=== PATIENT | male | born 1935 | race African-American/Black ===

== ENCOUNTER 2016-08-16 14:36 | Emergency (ER) | payer MEDICARE, OTHER ==
[~2016-08-16] VITALS: Ht 175.3 cm; Wt 104.3 kg
--- NOTE | 2016-08-16 15:01 | EKG ---
[facility] [address] [place] [address] Test Date: 2016-08-16 Test Time: 14:55:43 Pat Name: VALERIA PATTON Department: Room: Gender: M [employer]: : 1935 Requested By: KAUSHIK BANKS Order Number: [id number] Reading MD: Sarah Andrea Measurements Intervals [place] Rate: 75 P: 54 DC: 190 QRS: -9 QRSD: 82 T: 34 QT: 352 QTc: 396 Interpretive Statements SINUS RHYTHM LEFTWARD AXIS NO SPECIFIC ECG ABNORMALITIES RI6.01 No previous ECG available for comparison Electronically Signed On 08-19-2016 20:30:49 [employer] JOURNEYMAN by Sarah Andrea
[2016-08-16 15:37] LABS: BASO # 0.1 x10^3/uL (0.0-0.2); BASO % 1 % (0-3); EOS % 3 % (0-3); HEMATOCRIT 33.4 % (39.0-53.0); LYMPH # 2.4 x10^3/uL (1.0-4.8); LYMPH % 24 % (24-48); MEAN CORPUSCULAR HEMOGLOBIN 27 pg (25-35); MEAN CORPUSCULAR HGB CONC 33 g/dL (31-37); MEAN CORPUSCULAR VOLUME 83 fL (79-100); MONO % 8 % (0-9); NEUT % 64 % (31-73); PLATELET COUNT 248 x10^3/uL (140-400); RED BLOOD COUNT 4.01 x10^6/uL (4.30-5.70); RED CELL DISTRIBUTION WIDTH 16.2 % (11.5-14.5); WHITE BLOOD COUNT 9.7 x10^3/uL (4.0-11.0)
--- NOTE | 2016-08-16 16:03 | RAD ---
CT of the head without contrast, 08/16/2016: History: Fall, patient anticoagulated There are moderate patchy lucencies in the deep white matter bilaterally compatible with chronic ischemic change. The ventricles are mildly enlarged on a compensatory basis. There is no shift of the midline structures. There is no evidence of acute intracranial hemorrhage or mass effect. There is calcific plaquing of the distal internal carotid and vertebral arteries. IMPRESSION: 1. Moderate bilateral deep white matter lucencies compatible with chronic ischemic change. 2. No acute intracranial abnormality is detected. CT of the cervical spine without contrast, 08/16/2016: Noncontrast scans were obtained with multiplanar reconstructions produced. There is extensive spurring throughout the cervical spine, most prominent anteriorly. There are moderate degenerative changes involving scattered facet joints bilaterally. The combination of findings is causing mild to moderate central spinal stenosis at several levels. No acute fracture or dislocation is identified. IMPRESSION: 1. 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 2. No acute bony abnormality is detected. PQRS Compliance Statement: One or more of the following individualized dose reduction techniques were utilized for this examination: 1. Automated exposure control 2. Adjustment of the mA and/or kV according to patient size 3. Use of iterative reconstruction technique
[2016-08-16 16:04] LABS: BILIRUBIN,URINE NEGATIVE (NEG); GLUCOSE,URINE NEGATIVE (NEG); NITRITE,URINE NEGATIVE (NEG); PH,URINE 6.5; PROTEIN,URINE 30 mg/dL (NEG-TRACE); UROBILINOGEN,URINE 0.2 mg/dL (0.2 mg/dL)
[2016-08-16 16:04] LABS: CREATININE 1.6 mg/dL (0.7-1.3); GFR 50.6; POTASSIUM 3.8 mmol/L (3.5-5.1)
[2016-08-16 16:06] LABS: ALBUMIN 3.1 g/dL (3.4-5.0); ALBUMIN/GLOBULIN RATIO 0.8 (1.0-1.7); TOTAL BILIRUBIN 0.3 mg/dL (0.2-1.0); TOTAL PROTEIN 7.1 g/dL (6.4-8.2)
[2016-08-16 16:16] LABS: BACTERIA,URINE 0 /HPF (0-FEW); WBC,URINE 0 /HPF (0-4)
--- NOTE | 2016-08-16 16:43 | PHYS DOC ---
Past Medical History Past Medical History: Constipation, Diabetes-Type II, GERD, High Cholesterol, Hypertension, Prostatitis Additional Past Medical Histor: OVERACTIVE BLADDER Past Surgical History: Other Additional Past Surgical Histo: R ARM Alcohol Use: None Drug Use: None Adult General Chief Complaint Chief Complaint: dizziness, fall HPI HPI Patient is a 81 year old male brought by ambulance from [place] where he lives, with a complaint of dizziness. The patient has been dizzy for several days. On Sunday, 10/10, he states he bounced into a wall and then fell over backwards, struck the back of his head on the floor. No loss of consciousness. He also hurt his right shoulder when he fell. He has continued to have intermittent dizziness that is poorly described. It does not sound like syncope symptoms. He' s had no chest pain. He also feels that his right ear is "plugged up". He thinks that his dizziness might be caused by a recent increase in his medication amitizia. Patient complains of some pain in the back of his head and neck since he fell. It is not getting worse. PCP Dr. Aggarwal at Review of Systems Review of Systems Constitutional: Denies fever or chills [] Eyes: Denies change in visual acuity, redness, or eye pain [] HENT: Denies nasal congestion or sore throat [] Respiratory: Denies cough or shortness of breath [] Cardiovascular: Denies chest pain GI: Denies abdominal pain, nausea, vomiting, bloody stools or diarrhea [] : Denies dysuria or hematuria [] Musculoskeletal: As in history of present illness for posterior and right-sided neck pain Integument: Denies rash or skin lesions [] Neurologic: Complains of posterior head pain, does not necessarily sound like a headache, no focal weakness Physical Exam Physical Exam Constitutional: Well developed, well nourished, no acute distress, non-toxic appearance. Alert, mentating normally. HENT: No obvious scalp hematoma or injury, tenderness to the posterior occipital scalp, bilateral external ears normal, left EAC with small slash normal amount of cerumen, right EAC is blocked with a large amount of cerumen, oropharynx moist, no oral exudates, nose normal. [] Eyes: conjunctiva normal, no discharge. [] Neck: Normal range of motion, mild tenderness to palpation diffusely of the neck , no bony tenderness, supple, no stridor. [] Cardiovascular:Heart rate regular rhythm, no murmur [] Lungs & Thorax: Bilateral breath sounds clear to auscultation [] Skin: Warm, dry, no erythema, no rash. [] Extremities: Right shoulder has no deformity, no significant bony point tenderness, range of motion intact. Neurologic: Alert and oriented X 3, normal motor function, normal sensory function, no focal deficits noted. [] Current Patient Data Vital Signs Vital Signs Date Time Temp Pulse Resp B/P Pulse Ox O2 Delivery O2 Flow Rate FiO2 08/16/16 17:06 69 18 170/89 99 Room Air 08/16/16 14:36 98.1 98.1 Lab Values Laboratory Tests Test 08/16/16 15:05 08/16/16 15:25 08/16/16 15:47 Glucose (Fingerstick) 119mg/dL (70-99) H White Blood Count 9.7x10^3/uL (4.0-11.0) Red Blood Count 4.01x10^6/uL (4.30-5.70) L Hemoglobin 11.0g/dL (13.0-17.5) L Hematocrit 33.4% (39.0-53.0) L Mean Corpuscular Volume 83fL (79-100) Mean Corpuscular Hemoglobin 27pg (25-35) Mean Corpuscular Hemoglobin Concent 33g/dL (31-37) Red Cell Distribution Width 16.2% (11.5-14.5) H Platelet Count 248x10^3/uL (140-400) Neutrophils (%) (Auto) 64% (31-73) Lymphocytes (%) (Auto) 24% (24-48) Monocytes (%) (Auto) 8% (0-9) Eosinophils (%) (Auto) 3% (0-3) Basophils (%) (Auto) 1% (0-3) Neutrophils # (Auto) 6.2x10^3uL (1.8-7.7) Lymphocytes # (Auto) 2.4x10^3/uL (1.0-4.8) Monocytes # (Auto) 0.7x10^3/uL (0.0-1.1) Eosinophils # (Auto) 0.3x10^3/uL (0.0-0.7) Basophils # (Auto) 0.1x10^3/uL (0.0-0.2) Sodium Level 144mmol/L (136-145) Potassium Level 3.8mmol/L (3.5-5.1) Chloride Level 109mmol/L (98-107) H Carbon Dioxide Level 26mmol/L (21-32) Anion Gap 9 (6-14) Blood Urea Nitrogen 16mg/dL (8-26) Creatinine 1.6mg/dL (0.7-1.3) H Estimated GFR (Cockcroft-Gault) 50.6 BUN/Creatinine Ratio 10 (6-20) Glucose Level 141mg/dL (70-99) H Calcium Level 9.0mg/dL (8.5-10.1) Total Bilirubin 0.3mg/dL (0.2-1.0) Aspartate Amino Transferase (AST) 21U/L (15-37) Alanine Aminotransferase (ALT) 25U/L (16-63) Alkaline Phosphatase 22U/L (46-116) L Total Protein 7.1g/dL (6.4-8.2) Albumin 3.1g/dL (3.4-5.0) L Albumin/Globulin Ratio 0.8 (1.0-1.7) L Urine Collection Type Unknown Urine Color Yellow Urine Clarity Clear Urine pH 6.5 Urine Specific [place] 1.010 Urine Protein 30mg/dL (NEG-TRACE) Urine Glucose (UA) Negativemg/dL (NEG) Urine Ketones (Stick) Negativemg/dL (NEG) Urine Blood Trace (NEG) Urine Nitrite Negative (NEG) Urine Bilirubin Negative (NEG) Urine Urobilinogen Dipstick 0.2mg/dL (0.2 mg/dL) Urine Leukocyte Esterase Negative (NEG) Urine RBC 6-10/HPF (0-2) Urine WBC 0/HPF (0-4) Urine Bacteria 0/HPF (0-FEW) Urine Hyaline Casts Moderate/HPF Urine Mucus Slight/LPF Laboratory Tests 08/16/16 15:25 Laboratory Tests 08/16/16 15:25 EKG EKG 12-lead EKG read by me. Sinus rhythm. Heart rate 75. There are no acute ST or T wave changes indicative of ischemia or infarction. No STEMI. 1455 [] Radiology/Procedures Radiology/Procedures CT scan of the head and cervical spine read by the radiologist. No acute findings. Three-view x-ray of the right shoulder read by me. No fracture or dislocation noted. Procedure: Right external ear canal cerumen disimpaction by me Warm water was irrigated using a 20 mL syringe and Rhino anterior washer. Copious irrigation was required. Eventually, a large plug of cerumen was disimpacted and able to be removed easily. The patient states he could hear quite a bit better immediately after the procedure. Exam of the right ear after procedure reveals no evidence of trauma, TM intact. [] Course & Med Decision Making Course & Med Decision Making Pertinent Labs and Imaging studies reviewed. (See chart for details) 81-year-old male with some nonspecific dizziness complaints. Labs unremarkable. He had a fall but his CT scan of the head and neck negative for acute findings. This certainly could be a side effect to the Amitizia as the patient suspects, I ask him to speak with his doctor about that. It also could be from his right ear canal is impacted with cerumen, which I irrigated in the ED and his impaction is relieved. If not improved in one to 2 days I did ask him to see his doctor. Patient remained stable in the emergency department and transportation back to his assisted living facility was arranged by ED nursing staff. [] Dragon Disclaimer Dragon Disclaimer This electronic medical record was generated, in whole or in part, using a voice recognition dictation system. Departure Departure Impression: Primary Impression: Dizziness Additional Impression: Right shoulder pain Disposition: 01 HOME, SELF-CARE Condition: STABLE Referrals: NO PCP (PCP) Patient Instructions: Dizziness, [id number] Additional Instructions: We did not find a definite cause for your dizziness. As we discussed, I cleaned a lot of wax out of your ear, and sometimes that helps. Give it a day or so and if your dizziness is better, that was probably it. If your dizziness does not improve by tomorrow, it could be related to your medication, Amitiza, and I think you should talk to your doctor about whether it could be that. Plenty of fluids. Problem Qualifiers KAUSHIK BANKS MD Aug 16, 2016 16:43
--- NOTE | 2016-08-16 17:00 | RAD ---
EXAM: Right shoulder 3 views. HISTORY: Right shoulder pain after fall. COMPARISON: None. FINDINGS: No fractures are identified. 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 Inferior directed clavicular spurs measure up to 3 mm. Tiny humeral osteophytes are noted. Alignment is maintained. There are chronic right rib fractures. IMPRESSION: 1. 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
[2016-08-16 17:06] VITALS: BP 170/89
== END 2016-08-16 18:20 | disposition home or self-care (01) ==
LOC: ER 14:36
DX: R42 Dizziness and giddiness (principal); M25.511 Pain in right shoulder; E11.9 Type 2 diabetes mellitus without complications; E78.00 Pure hypercholesterolemia, unspecified; I10 Essential (primary) hypertension; W01.198A Fall on same level from slipping, tripping and stumbling with subsequent striking against other object, initial encounter; Y93.89 Activity, other specified; Y92.89 Other specified places as the place of occurrence of the external cause; Y99.8 Other external cause status
CPT/HCPCS: 36415; 69209; 70450; 72125; 73030; 80053; 81001; 82947; 85027; 93005; 99285-25